=== PATIENT | female | born 1955 | race Caucasian/White ===

== ENCOUNTER 2022-04-09 13:57 | Outpatient (CLI) | payer MEDICARE, SELFPAY ==
--- NOTE | 2022-04-09 14:26 | MM_ITS ---
WS: [id number] BILATERAL 3D TOMOSYNTHESIS DIGITAL SCREENING MAMMOGRAPHY WITH CAD CLINICAL INFORMATION: SCREENING HISTORY: Screening mammogram. No current complaints. COMPARISON: March 15, 2019 TECHNIQUE: Bilateral CC and MLO views. FINDINGS: The breasts are composed of heterogeneous fibroglandular density tissue, which can limit the detectio n of small underlying mass lesions. A few tiny punctate calcifications. No suspicious mass, asymmetry , calcifications, or architectural distortion. No evidence of malignancy. MM/[place] [id number] IMPRESSION: BI-RADS: 2-Benign FOLLOW UP: 1 Year Follow-up Recommend return to annual screening mammography.
== END 2022-04-09 13:58 | disposition home or self-care (01) ==
PROVIDERS: PCP Nurse Practitioner Family; Visit Provider Nurse Practitioner Family
DX: Z12.31 Encounter for screening mammogram for malignant neoplasm of breast (principal)
CPT/HCPCS: 77063; 77067

== ENCOUNTER 2023-04-13 07:53 | Outpatient (CLI) | payer MEDICARE, SELFPAY ==
--- NOTE | 2023-04-13 08:18 | MM_ITS ---
WS: [id number] . BILATERAL SCREENING DIGITAL TOMOSYNTHESIS MAMMOGRAM WITH CAD HISTORY: SCREENING COMPARISON: 04/09/2022, 03/15/2019 and 03/04/2017 Bilateral CC and MLO views with tomosynthesis and synthetic mammography submitted. Computer aided det ection analyzed. Breast composition: There are scattered areas of fibroglandular density. No suspicious masses, microc alcifications or architectural distortion. There are a few benign calcifications scattered within eac h breast. MM/[place] [id number] IMPRESSION: BI-RADS: 2-Benign FOLLOW UP: 1 Year Follow-up
== END 2023-04-13 07:54 | disposition home or self-care (01) ==
PROVIDERS: PCP Nurse Practitioner Family; Visit Provider Nurse Practitioner Family
DX: Z12.31 Encounter for screening mammogram for malignant neoplasm of breast (principal)
CPT/HCPCS: 77063; 77067

== ENCOUNTER → 2024-01-19 08:50 | Outpatient (BNVA) | payer BC, SELFPAY | PROVIDERS: PCP Nurse Practitioner Family; Visit Provider Nurse Practitioner Family | DX: R39.9 Unspecified symptoms and signs involving the genitourinary system (principal) | CPT/HCPCS: 81000 ==

== ENCOUNTER 2024-04-14 08:25 | Outpatient (CLI) | payer BC, SELFPAY ==
--- NOTE | 2024-04-14 08:29 | MM_ITS ---
WS: [id number] BILATERAL SCREENING DIGITAL TOMOSYNTHESIS MAMMOGRAM WITH CAD HISTORY: SCREEN COMPARISON: 04/13/2023, 04/09/2022 Bilateral CC and MLO views with tomosynthesis and synthetic mammography submitted. Computer aided det ection analyzed. Breast composition: There are scattered areas of fibroglandular density. No suspicious masses, microc alcifications or architectural distortion. MM/[place] [id number] IMPRESSION: BI-RADS: 1-Negative FOLLOW UP: 1 Year Follow-up
== END 2024-04-14 08:26 | disposition home or self-care (01) ==
LOC: RAD 08:25
PROVIDERS: PCP Nurse Practitioner Family; Visit Provider Nurse Practitioner Family
DX: Z12.31 Encounter for screening mammogram for malignant neoplasm of breast (principal); R92.323 Mammographic fibroglandular density, bilateral breasts
CPT/HCPCS: 77063; 77067

== ENCOUNTER → 2024-12-15 10:51 | Outpatient (BNVA) | payer BC, SELFPAY | PROVIDERS: PCP Family Medicine; Visit Provider Family Medicine | DX: Z13.6 Encounter for screening for cardiovascular disorders (principal); I10 Essential (primary) hypertension | CPT/HCPCS: 80053; 80061; 84439; 84443; 85025 ==

== ENCOUNTER 2025-04-20 07:43 | Outpatient (CLI) | payer BC, SELFPAY ==
--- NOTE | 2025-04-20 07:46 | MM_ITS ---
WS: [id number] BILATERAL 3D TOMOSYNTHESIS DIGITAL SCREENING MAMMOGRAPHY WITH CAD CLINICAL INFORMATION: SCREENING HISTORY: Screening mammogram. No current complaints. COMPARISON: 2023 TECHNIQUE: Bilateral CC and MLO views. FINDINGS: Scattered fibroglandular densities bilaterally. No suspicious focal mass, asymmetry, calcifications, or architectural distortion. No evidence of malignancy. Vascular calcification MM/MM scr BI tomosynthesis [id number] IMPRESSION: DENSITY: There are scattered areas of fibroglandular density. BI-RADS: 2 - Benign. FOLLOW UP: 1 Year Follow-up Recommend return to annual screening mammography.
== END 2025-04-20 07:44 | disposition home or self-care (01) ==
PROVIDERS: PCP Family Medicine; Visit Provider Family Medicine
DX: Z12.31 Encounter for screening mammogram for malignant neoplasm of breast (principal); R92.323 Mammographic fibroglandular density, bilateral breasts; R92.1 Mammographic calcification found on diagnostic imaging of breast
CPT/HCPCS: 77063; 77067

== ENCOUNTER 2025-11-10 07:31 | Emergency (ER) | payer MEDICARE, OTHER, SELFPAY ==
[2025-11-10 07:34] VITALS: BP 174/79; PULSE 76; RESP 17; TEMP 36.7; O2SAT 99; BMI 27.3
--- NOTE | 2025-11-10 07:34 | XRR_ITS ---
PROCEDURE INFORMATION: Exam: XR Chest Exam date and time: 11/10/2025 7:44 AM Age: 70 years old Clinical indication: Pain; Chest pressure; Additional info: Chest pain TECHNIQUE: Imaging protocol: Radiologic exam of the chest. Views: 1 view. COMPARISON: No relevant prior studies available. FINDINGS: Tubes, catheters and devices: There are overlying monitoring leads. Lungs: Unremarkable. No consolidation. Pleural spaces: Unremarkable. No pleural effusion. No pneumothorax. Heart/Mediastinum: Unremarkable. No cardiomegaly. Bones/joints: Unremarkable. XR/XR chest 1V portable [id number] IMPRESSION: No acute findings.
--- NOTE | 2025-11-10 07:34 | ECG_ITS ---
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
--- OUTSIDE RECORDS SUMMARY | 2025-11-10 07:36 | XMS_ITS | Data Portability ---
Author Organization AMBREEN Juarez [facility] Aniket Clark [facility] Address [address] [address] Assessment Encounter Date Assessment Date Assessment LastModified by Organization Details LastModified Time 07/22/2023 07/22/2023 Patient presente d to office today for their Medicare Annual Wellness Visit. Education was provided on healthy nutrition, including a diet rich in fruits and vegetables, minimizing simple carbohydrates, salt, and saturated fats. Encouraged regular cardiovascular exercise such as walking at least 30 minutes daily, 5 times per week. Emphasized preventive health measures and educated pt on fall prevention and community-based lifestyle interventions to help reduce health risks and promote healthy living. Not available 07/22/2023 10:43:09 01/27/2024 01/27/2024 Patient presente d to office today for their Medicare Annual Wellness Visit. Education was provided on healthy nutrition, including a diet rich in fruits and vegetables, minimizing simple carbohydrates, salt, and saturated fats. Encouraged regular cardiovascular exercise such as walking at least 30 minutes daily, 5 times per week. Emphasized preventive health measures and educated pt on fall prevention and community-based lifestyle interventions to help reduce health risks and promote healthy living. CCA form completed at today's visit. Not available 01/27/2024 10:41:45 Plan of Treatment Reminders Order Date Submit Date Provider Last Modified By Organization Details Last Modified Time Details Appointments None recorded. Lab urinalysis, complete 2023 024 [facility], [address], [facility], [place], [address], 09/15/202 4 05:00:58 culture, urine 2023 024 [facility], [address] [facility] [address], [address], [place], [address], 4 05:00:58 HbA1c (hemoglobin A1c), blood [address] [facility] ([facility]), [address] [place], [address], 4 11:32:33 CMP, serum or plasma 2023 024 [facility], [address], [address], [place], [address], 4 14:07:39 lipid panel, blood 2023 024 [facility], [address], [address], [place], [address], 4 14:07:41 CBC 2023 024 [facility], [address], [address], [place], [address], 4 11:50:14 unlisted lab - HbA1C (glyco hemoglobin) 2022 023 [email or web address] 9 [facility], [address], [address], [place], [address], 3 09:55:29 CMP, serum or plasma 2022 023 [facility], [address], [address], [place], [address], 4 05:01:11 lipid panel, blood 2022 023 [facility], [address] [facility], [facility] [address], [address], 4 05:01:11 CBC 2022 023 [facility], [address] [facility], [facility], [place], [address], 4 05:01:11 TSH, serum or plasma [address] [facility] ([facility]), [address] [place], [address], 4 13:27:58 Referral None recorded. Procedures None recorded. Surgeries None recorded. Imaging MAMMO, screening, digital, bilateral [address] (Scheduling Orders), [address] [place], [address], 4 10:18:09 US, pelvis, complete [address] ([facility]), [address] [place], [address], 4 11:35:40 bone density [address] (Scheduling Orders), [address] [place], [address], 4 10:57:18 Medication Orders sumatriptan 100 mg tablet 2022 023 [facility] Not available 3 10:51:34 lisinopril 10 mg tablet 2022 023 [facility] Not available 10:51:34 Patient TargetsNo targets recorded. Patient Instructions Encounter Date Encounter Id Patient Instructions Last Modified By Organization Details Last Modified Time 07/22/2023 [id number] advance care planning: care instructions Not available 07/22/2023 10:51:32 Call or return for questions or concerns. Not available 07/22/2023 10:51:30 Discussed and explained advance directives such as standard forms to the patient. Not available 07/22/2023 10:50:14 01/27/2024 [id number] advance directives: care instructions Not available 01/27/2024 10:46:31 Call or return for questions or concerns. Not available 01/27/2024 10:44:03 Discussed and explained advance directives such as standard forms to the patient. Face to face discussion lasted for a duration of _10__ minutes. Not available 01/27/2024 10:45:37 Reason for Referral None Reported. Results Created Date Observation Date Name Description Value Unit Range Abnormal Flag Note LastModifiedBy Organization Detail LastModifiedTime 01/27/2001/27/2024 CBC WBC 5.4 x10 4.0-10 .5 Not Available [facility] [address] [facility] [address], [place], [address], 01/27/2024 11:50:14 01/27/20 24 01/27/2024 CBC RBC 4.49 x10 3.50-5 .50 Not Available [facility] [address] [facility] [address], [place], [address], 01/27/2024 11:50:14 01/27/20 24 01/27/2024 CBC HGB 13.8 g/dL 12.0-1 6.0 Not Available [facility] [address] [facility] [address], [place], [address], 01/27/2024 11:50:14 01/27/20 24 01/27/2024 CBC HCT 39.2 % 37.0-4 7.0 Not Available [facility] [address] [facility] 1, [place], [address], 01/27/2024 11:50:14 01/27/20 24 01/27/2024 CBC MCV 87.2 fL 80.0-9 9.9 Not Available [facility] [address] [facility] 1, [place], [address], 01/27/2024 11:50:14 01/27/20 24 01/27/2024 CBC MCH 30.7 pg 27.0-3 2.0 Not Available [facility] [address] [facility] [address], [place], [address], 01/27/2024 11:50:14 01/27/20 24 01/27/2024 CBC MCHC 35.1 g/dL 32.0-3 6.0 Not Available [facility] [address] [facility] [address], [place], [address], 01/27/2024 11:50:14 01/27/20 24 01/27/2024 CBC RDW 13.4 % 11.5-1 4.5 Not Available [facility] [address] [facility] [address], [place], [address], 01/27/2024 11:50:14 01/27/20 24 01/27/2024 CBC plt 207.6 x10 140.0- 451.0 Not Available [facility] [address] [facility], [place], [address], 01/27/2024 11:50:14 01/27/20 24 01/27/2024 CBC lymphocytes % 33.1 % 20.0-5 0.0 Not Available [facility] [address] [facility], [place], [address], 01/27/2024 11:50:14 01/27/20 24 01/27/2024 CBC granulcytes % 53.2 % 30.0-7 0.0 Not Available [facility] [address] [facility], [place], [address], 01/27/2024 11:50:14 01/27/20 24 01/27/2024 CBC monocytes % 8.2 % 2.0-10 .0 Not Available [facility] [address] [address], [place], [address], 01/27/2024 11:50:14 01/27/20 24 01/27/2024 CBC granulcytes# 2.9 x10 Not Delmy ilable [facility] [address] [address], [place], [address], 01/27/2024 11:50:14 01/27/20 24 01/27/2024 CBC lymphocytes # 1.8 x10 Not Available [facility] [address] [address], [place], [address], 01/27/2024 11:50:14 01/27/20 24 01/27/2024 CBC monocytes # 0.4 x10 Not Avai lable [facility] [address] [address], [place], [address], 01/27/2024 11:50:14 01/27/20 24 01/27/2024 CMP (FEMA LE) glucose 97.0 mg/dL 60.0-9 9.0 Not Available [facility] [address] [address], [place], [address], 01/27/2024 14:07:39 01/27/20 24 01/27/2024 CMP (FEMA LE) BUN (blood urea nitrogen) 16.0 mg/dL 10.0-2 6.0 Not Available [facility] [address] [address], [place], [address], 01/27/2024 14:07:39 01/27/20 24 01/27/2024 CMP (FEMA LE) creatinine (serum) 0.7 mg/dL 0.4-1. 5 Not Available [facility] [address] [facility] [address] [place], [address], 01/27/2024 14:07:39 01/27/20 24 01/27/2024 CMP (FEMA LE) BUN/creatini ne ratio 23.19 ratio Not Available [facility] [address] [facility] [address], [place], [address], 01/27/2024 14:07:39 01/27/20 24 01/27/2024 CMP (FEMA LE) eGFR calculated 90.5 Not Available [facility] [address] [facility] [address] [facility], [place], [address], 01/27/2024 14:07:39 01/27/20 24 01/27/2024 CMP (FEMA LE) total protein 7.5 g/dL 6.0-8. 5 Not Available [facility] [address] [facility], [place], [address], 01/27/2024 14:07:39 01/27/20 24 01/27/2024 CMP (FEMA LE) total bilirubin 0.4 mg/dL 0.2-1. 3 Not Available [facility] [address] [facility] [address] [facility], [place], [address], 01/27/2024 14:07:39 01/27/20 24 01/27/2024 CMP (FEMA LE) albumin 4.6 g/dL 3.5-5. 5 Not Available [facility] [address] [facility] [address] [facility], [place], [address], 01/27/2024 14:07:39 01/27/20 24 01/27/2024 CMP (FEMA LE) globulin 2.9 calc Not Available [facility] [address] [facility], [place], [address], 01/27/2024 14:07:39 01/27/20 24 01/27/2024 CMP (FEMA LE) AST (SGOT) 26.0 U/L 0.0-46 .0 Not Available [facility] [address] [facility] [facility], [place], [address], 01/27/2024 14:07:39 01/27/20 24 01/27/2024 CMP (FEMA LE) altv (SGPT) 26.0 U/L 13.0-6 9.0 normal Not Available [facility] [address] [facility], [place], [address], 01/27/2024 14:07:39 01/27/20 24 01/27/2024 CMP (FEMA LE) A/G ratio 1.6 ratio Not Available [facility] [address] [facility], [place], [address], 01/27/2024 14:07:39 01/27/20 24 01/27/2024 CMP (FEMA LE) ALP phos 92.0 U/L 30.0-1 40.0 normal Not Available [facility] [address] [facility] [address], [place], [address], 01/27/2024 14:07:39 01/27/20 24 01/27/2024 CMP (FEMA LE) calcium 9.6 mg/dL 8.4-10 .5 Not Available [facility] [address] [facility] [address], [place], [address], 01/27/2024 14:07:39 01/27/20 24 01/27/2024 CMP (FEMA LE) sodium 141.0 mmol/ L 136.0- 145.0 Not Available [facility] [address] [facility] [address], [place], [address], 01/27/2024 14:07:39 01/27/20 24 01/27/2024 CMP (FEMA LE) potassium 4.0 mmol/ L 3.5-5. 1 Not Available [facility] [address] [facility], [place], [address], 01/27/2024 14:07:39 01/27/20 24 01/27/2024 CMP (FEMA LE) chloride 106.0 mmol/ L 98.0-1 10.0 normal Not Available [facility] [address] [facility], [place], [address], 01/27/2024 14:07:39 01/27/20 24 01/27/2024 CMP (FEMA LE) C02 29.0 mmol/ L 22.0-3 1.0 Not Available [facility] [address] [facility], [place], [address], 01/27/2024 14:07:39 01/27/20 24 01/27/2024 CMP (FEMA LE) anion gap 6.0 calc Not Available [facility] [address] [facility] [facility], [place], [address], 01/27/2024 14:07:39 01/27/20 24 01/27/2024 CMP (FEMA LE) osmolality 292.2 calc Not Available [facility] [address] [facility] [facility], [place], [address], 01/27/2024 14:07:39 01/27/20 24 01/27/2024 LIPID PROFI LE (FEMA LE) cholesterol 218.0 mg/dL 0.0-20 0.0 high Not Available [facility] [address] [facility], [place], [address], 01/27/2024 14:07:41 01/27/20 24 01/27/2024 LIPID PROFI LE (FEMA LE) trig 184.0 mg/dL 0.0-15 0.0 high Not Available [facility] [address] [facility], [place], [address], 01/27/2024 14:07:41 01/27/20 24 01/27/2024 LIPID PROFI LE (FEMA LE) HDL - direct 61.0 mg/dL >40.0 Not Available [facility] [address] [facility], [place], [address], 01/27/2024 14:07:41 01/27/20 24 01/27/2024 LIPID PROFI LE (FEMA LE) VLDL - direct 36.8 mg/dL Not Available [facility] [address] [facility], [place], [address], 01/27/2024 14:07:41 01/27/20 24 01/27/2024 LIPID PROFI LE (FEMA LE) LDL - direct 120.2 mg/dL 0.0-13 0.0 Not Available [facility] [address] [facility], [place], [address], 01/27/2024 14:07:41 01/27/20 24 01/27/2024 TSH, serum or plasm a TSH 0.68 Not Available [facility] ([facility]) [address] [place], [address], 01/27/2024 10:54:33 01/27/20 24 01/27/2024 HbA1c (hemo globi n A1c), blood HbA1c 6.4 Not Available [facility] ([facility]) [address] [place], [address], 01/25/2024 20:18:25 04/14/20 24 04/14/2024 MAMMO , scree dominik, digit al, bilat eral No observ ation record ed. [email or web address] [facility] [address] [place], [address], 04/25/2024 15:07:19 Result Notes None recorded. Problems Name Problem SNOMED Code Status Onset Date Resolution Date Notes Provider Name and Address Organization Details Recorded Time Dietary managemen t surveilla nce Completed 202104/10/2022 DIETARY COUNSELIN G AND SURVEILLA NCE - Status is Inactive; Recorded 2 9:52AM by eKrri Contreras CMT, Annotatio n/Addendu m; Promoted; acuity set as *; Not Available [facility] 3 03:18:07 Screening mammograp hy Active 2022 BI-RADS: 2-Benign Follow up 1 year KERRI CONTRERAS [facility] 3 17:53:17 Problem Notes None recorded. Procedures Surgical History Date Name Laterality Status Provider Name and Address Organization Details Recorded Time 04/14/20 24 [facility] 04/25/2024 15:06:53 04/09/20 22 screening mammography completed KERRI CONTRERAS [facility] 01/27/2024 10:32:20 section completed KERRI CONTRERAS [facility] 01/25/2024 20:15:35 Hysterectomy completed KERRI CONTRERAS [facility] 01/25/2024 20:15:46 Imaging Results None recorded. Procedure Notes None recorded. Medical Equipment None Reported. Allergies No known drug allergies Medications Name Sig Start Date Stop Date Status Note LastModified by Organization Details LastModified Time sumatript an 100 mg tablet TAKE 1 TABLET BY MOUTH TWICE DAILY NEEDED FOR MIGRAINE . TAKE AT LEAST 2 HOURS BETWEEN DOSES 2024 active Not Available Not Available Not Avai lable permethri n 5 % topical cream MASSAGE THOROUGH LY INTO THE SKIN FROM HEAD TO SOLES OF FEET. LEAVE ON FOR 8 TO 14 HOURS, THEN REMOVE BY THOROUGH WASHING active Not Available Not Available No t Available lisinopri l 10 mg tablet TAKE 1 TABLET BY MOUTH ONCE DAILY active Not Available Not Available No t Available nitrofura ntoin monohydra te/macroc rystals 100 mg capsule 01/26 completed Not Available Not Available Not Available Aleve 1 tab daily as needed active Not Available Not Available No t Available sumatript an succinate 2 times per day at least 2 hours between doses as needed for migraine 07/22 completed 71933; Recorded 02/04/20 5:08PM by Kerri Contreras CMT (Authori hermilo through FARIHA Peres), Refill Request; Refill Quantity : 9; Tablet; Not Available Not Available Not Available multivita min daily 07/22 completed 0; Recorded 01/19/20 3:09PM by Ben Calabrese LPN, Office Visit; Not Available Not Available Not Available Glucosami ne Complex-M SM daily 07/22 completed 0; Recorded 01/19/20 3:09PM by Ben Calabrese LPN, Office Visit; Not Available Not Available Not Available Multiple Vitamin, Womens 1 tab daily active Not Available Not Available No t Available Multi For Her 50 Plus 1 daily 07/22 completed Not Available Not Available Not Available Vitals Date Recorded Body height Body mass index (BMI) Body weight Heart rate Oxygen saturation Respiratory rate Systolic And Diastolic Provider Name and Address Organization Details Last Updated DateTime 4 160.02 cm 32.8 kg/m2 81500.5 9 g 80 /min 96 % 18 /min 154/70 mm[Hg] KERRI CONTRERAS [facility] 4 10:14:31 Date Recorded Body height Body mass index (BMI) Body weight Oxygen saturation Heart rate Body temperature Systolic And Diastolic Provider Name and Address Organization Details Last Updated DateTime 3 165.1 cm 30 kg/m2 84399.6 3 g 98 % 58 /min 98 [degF] 130/90 mm[Hg] BEN CALABRESE [facility] 3 10:20:35 Social History Question Answer Notes LastModified by Organizat ion Details LastModified Time Tobacco Smoking Status Former Smoker Quit 1984 smoked for 10 years [facility] 01/27/2024 10:19:22 When Did You Quit Smoking? 18+yearssin celastcijoselin etedy [email or web address] Information not available 01/27/2024 What Is Your Relationship Status? Information not available 01/27/2024 Sex: Unknown Functional Status Question Answer Note LastModified by Organizat ion Details LastModified Time Do you use any illicit or recreational drugs? No [email or web address] Information not available 01/27/2024 What is your level of alcohol consumption? Occasional Information not available 01/25/2024 Are you currently employed? Yes Information not available 01/27/2024 Are you able to care for yourself independently? Yes [email or web address] Information not available 01/27/2024 Mental Status None recorded. Family History Relationship Description Onset Age of this Age Resolved Age Notes LastModified by Organization Details LastModified Time Father Essential hypertension [email or web address] Not available 20:13:59 Father Diabetes mellitus [email or web address] Not available 01/24 20:14:10 Mother Essential hypertension [email or web address] Not available 20:14:26 Medical History Condition Response Hypertension Y Gynecological HistoryNo gynecological history recorded. Obstetrics History GPAL:G 0 P 0 0 0 0 Immunizations Vaccine Type Date Status Note Provider Nam e and Address Organization Details Recorded Time Influenza, split virus, trivalent, preservative 8 completed FARIHA FAYE [address] [place], [address], [facility] 07/22/2023 10:39:04 Tdap 9 completed FARIHA FAYE [address] [place], [address], [facility] 07/22/2023 10:39:04 Past Encounters Encounter ID Performer Location Encounter Start Date Encounter Closed Date Diagnosis/Indication Diagnosis SNOMED-CT Code Diagnosis ICD10 Code Diagnosis IMO Codes Diagnosis Note [id number] FARIHA FAYE [facility] ([facility]) [address] [place] [address] 07/22/2023 09:46:13 07/22/2023 12:35:20 Adult health examination 232460047 Z00.00 Migraine 92117195 G43.90 9 Essential hypertension 68491123 I10 Prediabetes 099297876 R7 3.03 [id number] FARIHA FAYE [facility] ([facility]) [address] [place] [address] 01/27/2024 09:39:18 01/27/2024 10:52:45 Essential hypertension 69370614 I10 Screening for osteoporosis 124191677 Z13.820 Screening mammography 24 896325 Z12.31 Prediabetes 734366588 R7 3.03 Postmenopa usal bleeding 75039394 N95.0 History of hysterecto my, ovaries remain. Advance care planning 71 6182833 Z71.89 Acute urin sabina tract infection 378340339 N39.0 Currently on antibiotic s, will have her return for a urine to make sure it is clear. Health Concerns Section Related Observation LastModified by Organization Detai ls LastModified Time None Recorded Concern Status LastModified by Organization Details LastModified Time None Recorded Advance Directives Directive None Recorded Payers Insurance Date Sequence Insurance Name Policy Number Policy Borden Covered Member ID Bodren Member ID Guarantor Name 01/24/2024 1 [employer] (MEDICARE REPLACEMENT/ ADVANTAGE - HMO) Aylin Bhatt [id number] Aylin Bhatt 11/28/2024 1 [id number] - [place]) [id number] Aylin Bhatt [id number] Aylin Bhatt Notes Date Note Type Note Provider Name and Address Organization Details Recorded Time 07/22/2023 text/html Medicare Annual Wellness VisitReported by PatientSocial/Behavio ral HistoryFor physical activity, patient reportsdoes not exercise on a regular basis. For diet and nutrition, patient reportshealthy diet. For fracture risk, patient reportsno history of fractures,no recent explained fracture, andno sudden unexplained fractures.Mental Status:For depression risk, patient reportsnever feels sad, empty, or tearful,no loss of interest in activities,no significant changes in weight,no agitation,no loss of energy,no feelings of worthlessness or guilt,no thoughts of suicide,no history of depression, andno history of mood disorders. For orientation, patient reportsno disorientation to time,no disorientation to date, andno disorientation to place. For concentration and memory, patient reportsno decreased concentrating ability,no memory lapses or loss, anddoes not forget words. For speech/motor difficulties, patient reportsno speech difficulties,no difficulty expressing formulated concepts,no difficulty with fine manipulative tasks,no difficulty writing/copying,no slowed reaction time, anddoes not knock things over when trying to pick them up.Functional AbilityFor hearing, patient reportsno loss of hearing. For vision, patient reportsno vision problems. For activities of daily living, patient reportsable to bathe with limited or no assistance,able to contol urination and bowels,able to dress with limited or no assistance,able to feed self with limited or no assistance,able to get out of chair or bed with limited or no assistance,able to groom with limited or no assistance, andable to toilet with limited or no assistance. For instrumental activities of daily living, patient reportsable to do house work with limited or no assistance,able to grocery shop with limited or no assistance,able to manage medications with limited or no assistance,able to manage money with limited or no assistance,able to prepare meals with limited or no assistance, andable to use the phone with limited or no assistance. For falls risk assessment, patient reportsno frequent falls while walking. For home safety, patient reportsworking smoke/co detectorsanduse of seatbelts.ROS as noted in the HPI GERRY GALEANA, [address], [address], [facility] 07/22/2023 10:59:15 01/27/2024 text/html Medicare Annual Wellness VisitReported by PatientSocial/Behavio ral HistoryFor physical activity, patient reportsdoes not exercise on a regular basis. For diet and nutrition, patient reportshealthy diet. For fracture risk, patient reportsno history of fractures.Mental Status:For depression risk, patient reportsnever feels sad, empty, or tearful,no loss of interest in activities,no significant changes in weight, andno sleep disturbances or insomnia. For orientation, patient reportsno disorientation to time,no disorientation to date, andno disorientation to place. For concentration and memory, patient reportsno decreased concentrating ability. For speech/motor difficulties, patient reportsno speech difficulties.Function al AbilityFor hearing, patient reportsno loss of hearing. For vision, patient reportsno vision problems. For activities of daily living, patient reportsable to bathe with limited or no assistance,able to contol urination and bowels,able to dress with limited or no assistance,able to feed self with limited or no assistance,able to get out of chair or bed with limited or no assistance,able to groom with limited or no assistance, andable to toilet with limited or no assistance. For instrumental activities of daily living, patient reportsable to do house work with limited or no assistance,able to grocery shop with limited or no assistance,able to manage medications with limited or no assistance,able to manage money with limited or no assistance,able to prepare meals with limited or no assistance, andable to use the phone with limited or no assistance. For falls risk assessment, patient reportsno frequent falls while walking. For home safety, patient reportsno unsafe demetris hazzardsanduse of seatbelts. GERRY GALEANA, [facility] [address] [place], [phone], [facility] 01/27/2024 10:49:28 OBGyn Episode No OBEpisode recorded.
--- NOTE | 2025-11-10 07:44 | W.ED.CHESTPA ---
HPI - Chest Pain General: Chief Complaint: Chest Pain Stated Complaint: chest pressure Time Seen by Provider: 11/10/25 07:34 History of Present Illness: 70-year-old female with a history of hypertension and migraine headaches who presents emergency room with epigastric discomfort. Said this started about 5 hours ago. She was nauseous initially. She is a bit tender to palpation in her epigastric region. Says she is having pain in her lower chest as well that radiates around the sides of her chest and into her back. Also goes down her lower back. No known cardiac history. No dysuria. No vomiting. No altered mental status. No fever. No cough. Related Data Previous Rx's ?Medication ?Instructions ?Recorded lisinopril 10 mg tablet 10 mg PO DAILY #90 tabs 12/15/24 diclofenac sodium 1 % topical gel 2 g topical QID #100 grams 06/18/25 sumatriptan succinate 100 mg tablet 100 mg PO Q2H PRN migraine 06/25/25 headache #9 tabs fluticasone propionate 50 2 spray intranasal BID #16 grams 10/10/25 mcg/actuation nasal spray,suspension (Flonase Allergy Relief) Allergies Allergy/AdvReac Type Severity Reaction Status Date / Time No Known Allergies Allergy Verified 11/10/25 07:42 Review of Systems Narrative: Constitutional symptoms: Negative except as documented in HPI. Skin symptoms: Negative except as documented in HPI. Eye symptoms: Negative except as documented in HPI. ENMT symptoms: Negative except as documented in HPI. Respiratory symptoms: Negative except as documented in HPI. Cardiovascular symptoms: Negative except as documented in HPI. Gastrointestinal symptoms: Negative except as documented in HPI. Genitourinary symptoms: Negative except as documented in HPI. Musculoskeletal symptoms: Negative except as documented in HPI. Neurologic symptoms: Negative except as documented in HPI. Psychiatric symptoms: Negative except as documented in HPI. Endocrine symptoms: Negative except as documented in HPI. PFSH ED PFSH: Medical History (Updated 11/10/25 @ 09:37 by Soraida Rudolph MD) Encounter for outpatient evaluation and management for new patient Migraine Hypertension Social History (Updated 12/15/24 @ 10:39 by John Gray MD) Smoking and tobacco/nicotine status: never used tobacco/nicotine Alcohol intake: never Substance/Drug Use: never Physical Exam Narrative: EXAM NARRATIVE: General: Alert, no acute distress. Skin: Warm, dry. Head: Normocephalic, atraumatic. Neck: Supple, trachea midline. Eye: Extraocular movements are intact. Ears, nose, mouth and throat: mucosa moist. Cardiovascular: Regular, Normal peripheral perfusion. Respiratory: Lungs are clear to auscultation, respirations are non-labored, breath sounds are equal, Symmetrical chest wall expansion. Gastrointestinal: Soft, moderate epigastric tenderness to palpation, Non distended Musculoskeletal: Normal ROM, no deformity. Neurological: Alert and oriented, No focal neurological deficit observed. Psychiatric: Cooperative, appropriate mood & affect. Course Vital Signs: Vital signs: Vital Signs Temperature 98.1 F 11/10/25 07:34 Pulse Rate 76 11/10/25 07:34 Respiratory Rate 17 11/10/25 07:34 Blood Pressure 174/79 11/10/25 07:34 Pulse Oximetry 99 11/10/25 07:34 Oxygen Delivery Me thod Room Air 11/10/25 07:34 MDM - Chest Pain Medical Decision Making Medical decision making Patient's reason for coming to the emergency room: Chest/epigastric pain Social determinants: Patient is retired. Accompanied by family. I reviewed the patient's medical record. Patient has a history of hypertension and migraines. I reviewed the patient's current home meds Patient takes lisinopril for blood pressure Alternate historians: None Differential diagnosis including but not limited to and based on the above HPI, review of systems and physical exam: In this patient with epigastric pain differential would include cholelithiasis or cholecystitis. Hepatitis. Diverticulitis. Constipation. UTI. colitis. small bowel obstruction. Crohn's flare. pancreatitis. gastritis. peptic ulcer. also concern for acute cardiac event. Orders placed to evaluate differential diagnosis based on the above differential, HPI and physical exam EKG: Time 7:37 AM. Rate 60. Normal sinus rhythm, nonspecific ST changes, no ectopy, normal TX & QRS intervals, This was reviewed and interpreted by myself the ER physician at 7:40 AM EKG: Time 8:35 AM. Rate 57. Sinus bradycardia., No ST-T changes, no ectopy, normal TX & QRS intervals, This was reviewed and interpreted by myself the ER physician. At 8:40 AM. No significant changes from EKG done previously today in the emergency room. Chest x-ray: No acute process. No infiltrate. No pneumothorax. This was reviewed and interpreted by myself the emergency room physician. I also reviewed the radiology report. Lab Review: Laboratory results were reviewed and interpreted by myself the emergency room physician. No leukocytosis. No anemia. No renal failure. Lipase is negative. The urinalysis is negative for infection. Serial cardiac markers are negative. CT of the abdomen pelvis with contrast: Small hiatal hernia. Tiny gallstones but no signs of cholecystitis. Nonobstructing renal stone. Diverticulosis without diverticulitis. This was reviewed and interpreted by myself the emergency room physician. I also reviewed the radiology report. Assessment of risk: Level of risk: Low risk patient Hospitalization considerations: No consideration of hospitalization Reexamination: Patient remained stable. No increased work of breathing. No altered mental status. No focal motor deficits. Still with some epigastric pain. I gave her some Pepcid and Toradol Assessment and plan Epigastric abdominal pain ?IV Pepcid and Toradol - Discharged home - Discussed plan with patient. Answered any questions. - Evaluation and treatment of this problem were appropriate in the emergency setting. Lab Data 11/10/25 07:41 11/10/25 07:41 Radiology Impressions Chest X-Ray 11/10/25 07:34 IMPRESSION: No acute findings. Abdomen/Pelvis CT 11/10/25 09:04 IMPRESSION: 1. Small hiatal hernia. 2. There are tiny gallstones, no obvious gallbladder wall thickening. 3. Punctate nonobstructing left renal stone. 4. Scattered diverticula. Laboratory Results WBC 7.31 10^3/uL (3.29-11.43) 11/10/25 07:41 RBC 4.75 10^6/uL (3.85-5.65) 11/10/25 07:41 Hgb 13.90 g/dL (11.27-16.99) 11/10/25 07:41 Hct 41.0 % (36-47) 11/10/25 07:41 MCV 86.3 fl (85-98) 11/10/25 07:41 MCH 29.3 pg (27-33) 11/10/25 07:41 MCHC 33.9 g/dL (30-55) 11/10/25 07:41 RDW 11.9 % (12.1-15.1) L 11/10/25 07:41 Plt Count 186 10^3/cmm (157-399) 11/10/25 07:41 MPV 10.5 fL (7.4-10.4) H 11/10/25 07:41 Neut % (Auto) 81.1 % 11/10/25 07:41 Lymph % (Auto) 15.2 % 11/10/25 07:41 [place] % (Auto) 2.7 % 11/10/25 07:41 Eos % (Auto) 0.1 % 11/10/25 07:41 Baso % (Auto) 0.1 % 11/10/25 07:41 Neut # (Auto) 5.92 10^3/uL (1.8-7.7) 11/10/25 07:41 Lymph # (Auto) 1.1 10^3/uL (0.8-4.8) 11/10/25 07:41 [place] # (Auto) 0.2 10^3/uL (0.2-0.9) 11/10/25 07:41 Eos # (Auto) 0.0 10^3/uL (0.0-0.8) 11/10/25 07:41 Baso # (Auto) 0.0 10^3/uL (0.0-0.1) 11/10/25 07:41 Nucleated RBC % (auto) 0 % 11/10/25 07:41 Nucleated RBCs # 0.0 /100WBC 11/10/25 07:41 PT 12.80 SECONDS (12.1-14.9) 11/10/25 07:41 INR 0.90 (0.8-1.2) 11/10/25 07:41 APTT 25.4 SECONDS (23.9-36.7) 11/10/25 07:41 Sodium 135 mmol/L (136-145) L 11/10/25 07:41 Potassium 4.0 mmol/L (3.5-5.1) 11/10/25 07:41 Chloride 98 mmol/L (98-107) 11/10/25 07:41 Carbon Dioxide 25 mmol/L (22-29) 11/10/25 07:41 Anion Gap 16.0 (5-19) 11/10/25 07:41 BUN 17 mg/dL (8-23) 11/10/25 07:41 Creatinine 0.7 mg/dL (0.5-0.9) 11/10/25 07:41 GFR Calculation 83.2 mL/min (90-130) L 11/10/25 07:41 Glucose 164 mg/dL (65-115) H 11/10/25 07:41 Calculated Osmolality 285 mOsm/kg (285-295) 11/10/25 07:41 Calcium 9.7 mg/dL (8.5-10.5) 11/10/25 07:41 Total Bilirubin 0.5 mg/dL (0.15-1.2) 11/10/25 07:41 AST 18 U/L (0-32) 11/10/25 07:41 ALT 22 U/L (0-33) 11/10/25 07:41 Alkaline Phosphatase 85 U/L (35-105) 11/10/25 07:41 Troponin T Baseline < 6 ng/L (0-10) 11/10/25 07:41 Troponin T 60 Minute < 6.0 ng/L (0-10) 11/10/25 08:37 Delta Troponin T 0 ABS# (0-10) 11/10/25 08:37 NT-Pro-B Natriuret Pep 180 pg/mL (0-125) H 11/10/25 07:41 Total Protein 7.3 g/dL (6.6-8.7) 11/10/25 07:41 Albumin 4.8 g/dL (3.5-5.2) 11/10/25 07:41 Globulin 2.5 g/dL (1.3-4.6) 11/10/25 07:41 Lipase 26 U/L (13-60) 11/10/25 07:41 Urine Color Yellow (Yellow) 11/10/25 08:19 Urine Appearance Clear (CLEAR) 11/10/25 08:19 Urine pH 5.5 (5-7) 11/10/25 08:19 Ur Specific [place] 1.024 (1.005-1.030) 11/10/25 08:19 Urine Protein Trace (Negative) A 11/10/25 08:19 Urine Glucose (UA) Negative (Normal) 11/10/25 08:19 Urine Ketones Trace (Negative) 11/10/25 08:19 Urine Blood Trace (Negative) A 11/10/25 08:19 Urine Nitrate Negative (Negative) 11/10/25 08:19 Urine Bilirubin Negative (Negative) 11/10/25 08:19 Urine Urobilinogen 1.0 mg/dL (Negative) 11/10/25 08:19 Ur Leukocyte Esterase Negative (Negative) 11/10/25 08:19 Urine RBC 3-5 /hpf (0-2) 11/10/25 08:19 Urine WBC 0-5 /hpf (0-5) 11/10/25 08:19 Ur Squamous Epith Cells 0-5 /hpf (0-5) 11/10/25 08:19 Amorphous Sediment Not Reportable 11/10/25 08:19 Urine Bacteria None seen /hpf (NONE) 11/10/25 08:19 Hyaline Casts 3.30 /lpf 11/10/25 08:19 All radiology interpretation(s) finalized by discharge Clincial Decision Support The following clinical decision support tools were used to aid in care of the patient HEART Score -> History: Slightly Suspicous, EKG: Normal, Age: 65 or more yrs, Risk Factors: 1 or 2 Risk Factors, Troponin: Baseline Trop <16 ng/L. Resulting HEART Score: 3. Discharge Plan Discharge Patient Disposition: Home Clinical Impression: Epigastric pain Condition: Stable Prescriptions: No Action lisinopril 10 mg tablet 10 mg PO DAILY Qty: 90 3RF diclofenac sodium 1 % gel 2 g topical QID Qty: 100 0RF sumatriptan succinate 100 mg tablet 100 mg PO Q2H PRN (Reason: migraine headache) Qty: 9 5RF Rx Instructions: do not exceed 2 doses per 24 hrs fluticasone propionate [Flonase Allergy Relief] 50 mcg/actuation spray,suspension 2 spray intranasal BID Qty: 16 3RF Rx Instructions: administer into each nostril Discharge Orders: Discharge ED (Routine); Ordered 11/10/25 Ordered By: Soraida Rudolph Referrals: John Gray MD [Primary Care Provider, Family Practice] Discharge Diet: Advance as tolerated Discharge Activity: Increase activity as tolerated Patient Instructions: Abdominal Pain (ED), Opioid Safety, Pain Management, Patient Portal & [place] Instructions Activity Restrictions/Additional Instructions: Thank you for choosing [facility] for your healthcare needs today. You have been screened and evaluated and felt safe for discharge. Health conditions do change or evolve sometimes and as such it is important that you follow up with your Primary Doctor to be re checked, 3-5 days is a general good time frame for follow up. You are always welcome to return to the ED for re assessment if your symptoms are worsening or you have new concerns. (Please note that included in your discharge packet is information concerning opioid safety and pain management. This information is given to all patients who are discharged from the ER regardless of their discharge diagnosis or the medicines they usually take or are prescribed.) Print Language: Arabic Coding Level of Care Code ED [employer] Heart Score HEART Score Components History: Slightly Suspicous EKG: Normal Age: 65 or more yrs Risk Factors: 1 or 2 Risk Factors Troponin: Baseline Trop <16 ng/L HEART Score RESULT HEART Score: 3
[2025-11-10 07:48] LABS: Hematocrit 41.0 % (36-47); Hemoglobin 13.90 g/dL (11.27-16.99); Mean Corpuscular HGB Conc 33.9 g/dL (30-55); Mean Corpuscular Hemoglobin 29.3 pg (27-33); Mean Corpuscular Volume 86.3 fl (85-98); Nucleated Red Blood Cells % 0 %; Platelet Count 186 10^3/cmm (157-399); Red Blood Count 4.75 10^6/uL (3.85-5.65); White Blood Count 7.31 10^3/uL (3.29-11.43)
[2025-11-10 08:02] LABS: INR 0.90 (0.8-1.2); Prothrombin Time 12.80 SECONDS (12.1-14.9)
[2025-11-10 08:10] LABS: Troponin(5th) Baseline < 6 ng/L (0-10)
[2025-11-10 08:13] LABS: Partial Thromboplastin Time 25.4 SECONDS (23.9-36.7)
[2025-11-10 08:21] LABS: Alanine Aminotransferase 22 U/L (0-33); Albumin Level 4.8 g/dL (3.5-5.2); Alkaline Phosphatase 85 U/L (35-105); Anion Gap 16.0 (5-19); Aspartate Amino Transferase 18 U/L (0-32); Blood Urea Nitrogen 17 mg/dL (8-23); Calcium 9.7 mg/dL (8.5-10.5); Carbon Dioxide 25 mmol/L (22-29); Chloride 98 mmol/L (98-107); Globulin 2.5 g/dL (1.3-4.6); Glucose 164 mg/dL (65-115); Lipase 26 U/L (13-60); NT Pro B Type Natriuretic Pept 180 pg/mL (0-125); Osmolality Calculated 285 mOsm/kg (285-295); Potassium 4.0 mmol/L (3.5-5.1); Sodium 135 mmol/L (136-145); Total Protein 7.3 g/dL (6.6-8.7)
[2025-11-10 08:29] LABS: Glucose Urine UA Negative (Normal); Nitrate Urine Negative (Negative); Specific Gravity, Urine 1.024 (1.005-1.030)
--- NOTE | 2025-11-10 08:34 | ECG_ITS ---
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
--- NOTE | 2025-11-10 09:04 | CTR_ITS ---
PROCEDURE INFORMATION: Exam: CT Abdomen And Pelvis With Contrast Exam date and time: 11/10/2025 9:14 AM Age: 70 years old Clinical indication: Abdominal pain; Prior surgery; Surgery date: 6+ months; Surgery type: Hytso TECHNIQUE: Imaging protocol: Computed tomography of the abdomen and pelvis with contrast. Radiation optimization: All CT scans at this facility use at least one of these dose optimization techniques: automated exposure control; mA and/or kV adjustment per patient size (includes targeted exams where dose is matched to clinical indication); or iterative reconstruction. Contrast material: OMNI 350; Contrast volume: 100 ml; Contrast route: INTRAVENOUS (IV); COMPARISON: CR (CHEST, ) 11/10/2025 7:44 AM RADIATION DOSE METRICS: Total DLP (mGy-cm): 652.42 FINDINGS: Lungs: Minimal atelectasis noted within the lung bases. Diaphragm: There is a small hiatal hernia. Liver: Normal. No mass. Gallbladder and biliary ducts: Tiny gallstones are suspected. No obvious gallbladder wall thickening. Pancreas: Normal. No ductal dilation. Spleen: Normal. No splenomegaly. Adrenal glands: Normal. No mass. Kidneys and ureters: There is a punctate nonobstructing left renal stone. Stomach and bowel: There are scattered colonic diverticula which extend into the sigmoid. Appendix: No evidence of appendicitis. Intraperitoneal space: Unremarkable. No free air. No significant fluid collection. Vasculature: Unremarkable. No abdominal aortic aneurysm. Lymph nodes: There are normal-sized inguinal lymph nodes. Urinary bladder: Unremarkable as visualized. Reproductive: Uterus and ovaries are not identified. Bones/joints: Degenerative changes noted within the spine. There is mild scoliosis. Soft tissues: Unremarkable. CT/CT abdomen pelvis w con* [id number] IMPRESSION: 1. Small hiatal hernia. 2. There are tiny gallstones, no obvious gallbladder wall thickening. 3. Punctate nonobstructing left renal stone. 4. Scattered diverticula.
[2025-11-10] MEDS: iohexol 350 mg/mL 500 mL Btl (per mL) IV (09:16)
[2025-11-10 09:55] VITALS: BP 133/54; PULSE 67; RESP 21; O2SAT 98
== END 2025-11-10 09:56 | disposition home or self-care (01) ==
PROVIDERS: Emergency Provider Emergency Medicine; PCP Family Medicine
DX: R10.13 Epigastric pain (principal); I10 Essential (primary) hypertension
CPT/HCPCS: 36415; 71045; 74177; 80053; 81001; 83690; 83880; 84484; 85025; 85610; 85730; 93005; 96374; 99285; J1885; J3490; J9999